=== PATIENT | male | born 1980 | race African-American/Black ===

== ENCOUNTER 2016-12-05 04:09 | Emergency (ER) | payer MEDICAID, OTHER ==
[~2016-12-05] VITALS: Ht 180.3 cm; Wt 86.6 kg
[~2016-12-05 04:09] MED LIST: ALBU18; AML5T PO; BUSP7.5T4 PO; DIPH2.5T73 PO; [UNRECOGNIZED DRUG - CODE] PO
[2016-12-05] MEDS ORDERED: ACETAMINOPHEN 325 MG TAB PO ONE ×2 (04:30→04:45)
[2016-12-05] MEDS ORDERED: ACETAMINOPHEN 500 MG TAB PO ONE (04:32)
[2016-12-05 04:40] VITALS: BP 148/90
[2016-12-05] MEDS ORDERED: KETOROLAC TROMETH 60MG/2ML VIAL IM ONE (07:15)
== END 2016-12-05 09:06 | disposition home or self-care (01) ==
LOC: ER 04:10
DX: M54.6 Pain in thoracic spine (principal); J45.909 Unspecified asthma, uncomplicated; I10 Essential (primary) hypertension; F12.10 Cannabis abuse, uncomplicated; Z88.2 Allergy status to sulfonamides
CPT/HCPCS: 71111; 72128; 96372; 99284; J1885